=== PATIENT | male | born 1940 | race Caucasian/White ===

== ENCOUNTER 2017-03-19 11:28 | Day surgery (SDC) | payer MEDICARE, BC ==
[~2017-03-19] VITALS: Ht 177.8 cm; Wt 65.0 kg
[2017-03-19] MEDS ORDERED: LACTATED RINGERS 1,000 ML IV SCH (11:53)
[2017-03-19] MEDS ORDERED: PLEASE ENTER HEIGHT AND WEIGHT MC SCH (12:00)
[2017-03-19] MEDS ORDERED: PLEASE ENTER ALLERGIES MC SCH ×2 (12:00)
[2017-03-19 12:20] VITALS: BP 106/71
[2017-03-19] MEDS ORDERED: SPIR100T2 PO (12:20)
[2017-03-19] MEDS ORDERED: ESOM40CA PO (12:20)
[2017-03-19] MEDS ORDERED: FURO20TA3 PO (12:20)
[2017-03-19] MEDS ORDERED: PROP80TA PO (12:20)
[2017-03-19] MEDS ORDERED: FENTANYL PF 100 MCG/2ML ONE ×2 (12:22→13:46)
[2017-03-19] MEDS ORDERED: PROPOFOL 10 MG/ML, 20ML ONE (12:28)
[2017-03-19] MEDS ORDERED: PROPOFOL 10 MG/ML, 50ML ONE (12:28)
[2017-03-19 12:32] LABS: BLOOD UREA NITROGEN 9 mg/dL (7-18)
[2017-03-19 12:54] LABS: ASPARTATE AMINO TRANSFERASE 42 U/L (15-37)
[2017-03-19] MEDS ORDERED: MIDAZOLAM 1 MG/ML, 5ML ONE (13:46)
== END 2017-03-19 14:25 ==
LOC: OUT 11:28
PROVIDERS: ATTEND Specialist
DX: I85.00 Esophageal varices without bleeding (principal); K74.60 Unspecified cirrhosis of liver; K31.84 Gastroparesis; K21.9 Gastro-esophageal reflux disease without esophagitis; I10 Essential (primary) hypertension; G43.909 Migraine, unspecified, not intractable, without status migrainosus; I25.10 Atherosclerotic heart disease of native coronary artery without angina pectoris; Z85.828 Personal history of other malignant neoplasm of skin; Z98.890 Other specified postprocedural states; Z95.5 Presence of coronary angioplasty implant and graft; Z87.891 Personal history of nicotine dependence
CPT/HCPCS: 36415; 43244; 80053; 93005; J2250; J2704; J3010; J7120

== ENCOUNTER 2017-05-07 09:08 | Day surgery (SDC) | payer MEDICARE, BC ==
[~2017-05-07] VITALS: Ht 177.8 cm; Wt 62.0 kg
[~2017-05-07 09:08] MED LIST: ESOM40CA PO; FURO20TA3 PO; PROP80TA PO; SPIR100T2 PO
[2017-05-07] MEDS ORDERED: LACTATED RINGERS 1,000 ML IV SCH (09:49)
[2017-05-07 09:50] VITALS: BP 105/70
[2017-05-07] MEDS ORDERED: DIAZ10TA PO (10:31)
[2017-05-07] MEDS ORDERED: PROPOFOL 10 MG/ML, 50ML ONE (10:55)
[2017-05-07] MEDS ORDERED: ACETAMINOPHEN 325 MG TABLET PO PRN (11:00)
[2017-05-07] MEDS ORDERED: ONDANSETRON 2MG/ML, 2ML IVPush PRN (11:00)
[2017-05-07] MEDS ORDERED: MIDAZOLAM 1 MG/ML, 2ML IV PRN (11:00)
[2017-05-07] MEDS ORDERED: LABETALOL 5MG/ML, 20ML IV PRN (11:00)
[2017-05-07] MEDS ORDERED: FENTANYL PF 100 MCG/2ML IV PRN (11:00)
[2017-05-07] MEDS ORDERED: ALBUTEROL/IPRATROPIUM 2.5MG/0.5MG, 3 ML NPPB PRN (11:00)
[2017-05-07] MEDS ORDERED: MEPERIDINE/PF 25MG/0.5ML IVPush PRN (11:00)
[2017-05-07] MEDS ORDERED: DIAZEPAM 5 MG/ML, 2ML IVPush PRN (11:00)
[2017-05-07] MEDS ORDERED: LORazepam 2 MG/ML, 1ML IVPush PRN (11:00)
[2017-05-07] MEDS ORDERED: HYDROmorphone 1 MG/ML, 1ML IV PRN (11:00)
[2017-05-07] MEDS ORDERED: PROMETHAZINE 25 MG/ML, 1ML IV PRN (11:00)
[2017-05-07] MEDS ORDERED: OXYcodone 5 MG/5 ML ORAL.SOL UDC PO PRN (11:00)
== END 2017-05-07 14:25 ==
LOC: OUT 09:08
PROVIDERS: ATTEND Specialist
DX: I85.00 Esophageal varices without bleeding (principal); K74.60 Unspecified cirrhosis of liver; Z79.82 Long term (current) use of aspirin; I10 Essential (primary) hypertension; K21.9 Gastro-esophageal reflux disease without esophagitis; I25.10 Atherosclerotic heart disease of native coronary artery without angina pectoris; G43.909 Migraine, unspecified, not intractable, without status migrainosus; Z98.890 Other specified postprocedural states; Z95.5 Presence of coronary angioplasty implant and graft
CPT/HCPCS: 43244; J2704